=== PATIENT | male | born 1965 | race Caucasian/White ===

== ENCOUNTER 2020-09-14 06:49 | Emergency (ER) | payer OTHER ==
--- OUTSIDE RECORDS SUMMARY | 2020-09-14 06:51 | XMS REPORT | Continuity of Care Document ---
:1965 Author Organization [facility] t Address [address] [place] [address] Care Team Providers Name Role Phone Radiology Attending Clinician Unavailable Keenan CONTRERAS Attending Clinician Fausto CONTRERAS Attending Clinician Emmy CONTRERAS Attending Clinician Doctor Unassigned, Name Attending Clinician Unavailable Only, Test Attending Clinician Unavailable Laya ACNP, E Attending Clinician Emmy CONTRERAS Admitting Clinician Problems This patient has no known problems. Allergies, Adverse Reactions, Alerts This patient has no known allergies or adverse reactions. Medications This patient has no known medications. Procedures This patient has no known procedures. Encounters Start End Encounter Admission Attending Care Care Encounter Source Date/Time Date/Time Type Type Clinicians Facility Department ID 2020-05-24 2020-05-24 [facility] Radiology [facility] [id number] 08:27:28 23:59:00 Encounter Cameron [id number] [place] [id number] [place] [id number] 2020-05-24 2020-05-24 [facility] Radiology [facility] [id number] 08:25:18 08:26:00 Encounter Cameron [id number] [place] [id number] [place] [id number] 2020-03-16 2020-03-16 Telephone DALIA Hussein [id number] 00:00:00 00:00:00 Adonis [facility] [id number] [facility] [id number] 2020-02-05 2020-02-05 Telephone Joanarozina [facility] [id number] 00:00:00 00:00:00 Alea [facility] [id number] CLINICS [id number] 2020-01-28 2020-01-28 Hospital [facility] [id number] 08:39:00 11:30:00 Encounter Mahamed NATALYA [id number] [facility] 4.2.7.2.686 [facility] [id number] 2020-01-28 2020-01-28 Orders Doctor WANG [id number] 00:00:00 00:00:00 Only Unassigned, JAH 350.1.13.10 [facility] 4.2.7.2.686 [id number] 2020-01-26 2020-01-26 Laboratory Only, [facility] 1.2.840.114 [id number] 08:52:14 09:07:14 Only Test Cameron [id number] [place] 4.2.7.2.686 [place] [id number] 2020-01-26 2020-01-26 [facility] 1.2.840.114 [id number] 00:00:00 00:00:00 Shantelle E [facility] [id number] CLINICS [id number] [id number] 2020-01-09 2020-01-[address] [facility] [id number] 13:37:21 14:48:30 Visit Shantelle E Y [facility] [id number] CLINICS [id number] [id number] Results This patient has no known results.
--- NOTE | 2020-09-14 07:34 | RAD REPORT ---
EXAM DESCRIPTION: CT - Head Brain Wo Cont - 09/14/2020 7:13 am CLINICAL HISTORY: syncope, head injury left alevism COMPARISON: No comparisons TECHNIQUE: Axial 5 mm thick images of the head were obtained without IV contrast. All CT scans are performed using dose optimization technique as appropriate and may include automated exposure control or mA/KV adjustment according to patient size. FINDINGS: No intracranial hemorrhage, mass, edema or shift of mid-line structures. No acute infarcti on changes seen. No abnormal extra-axial fluid collections. Ventricles are normal. Mastoid air cells and visualized portions of the paranasal sinuses are clear. No acute bony findings. IMPRESSION: Negative non-contrast CT head examination.
[2020-09-14] MEDS ORDERED: NA CHLORIDE 0.9% 1,000 ML ONE (07:52)
[2020-09-14] MEDS ORDERED: ONDANSETRON 4 MG/2 ML VIAL ONE (07:52)
[2020-09-14 08:22] LABS: Protime INR 1.26
[2020-09-14 08:27] LABS: Absolute Lymphocytes (CBC) 0.9 K/uL (0.7-4.9); Basophils % 0.1 % (0-1.3); Hematocrit 41.1 % (39.6-49.0); Lymphocytes % 13.3 % (15.3-44.8); MPV 7.7 fL (7.6-11.3); RBC Red Blood Cell Count 4.62 M/uL (4.33-5.43)
--- NOTE | 2020-09-14 08:27 | RAD REPORT ---
EXAM DESCRIPTION: RAD - Chest Single View - 09/14/2020 8:16 am CLINICAL HISTORY: COVID +, cough COMPARISON: February 2016 TECHNIQUE: AP portable chest image was obtained 09/14/2020 8:16 am . FINDINGS: Low lung volume exam shows no substantial amount of interstitial or alveolar opacification . No failure or volume overload. Heart and vasculature are normal. No measurable pleural effusion and no pneumothorax. No acute bony abnormality seen. No acute aortic findings suspected. IMPRESSION: No significant lung parenchymal disease at this time.
[2020-09-14] MEDS ORDERED: NA CHLORIDE 0.9% 500 ML ONE (09:15)
--- NOTE | 2020-09-14 17:56 | ER ---
Nurse's Notes [facility] Name: Wes Dove Age: 55 yrs Sex: Male : 1965 Arrival Date: 09/14/2020 Time: 06:51 Bed 4 Private MD: Noble Amaya Diagnosis: SARS-associated coronavirus as the cause of diseases classified elsewhere;Dehydration;Syncope;Unspecified injury of head, initial encounter Presentation: 09/14 06:59 Chief complaint: Patient states: tested positive for covid last Sunday, has been em feeling weak and sweating a lot, also had a syncopal episode and hit left side of head, denies taking blood thinners. Coronavirus screen: fatigue, nausea, vomiting. Client presents with at least one sign or symptom that may indicate coronavirus-19. Standard/surgical mask placed on the client. Provider contacted for isolation considerations. Client reports previous positive COVID test result. Ebola Screen: Patient negative for fever greater than or equal to 101.5 degrees Fahrenheit, and additional compatible Ebola Virus Disease symptoms Patient denies exposure to infectious person. Patient denies travel to an Ebola-affected area in the 21 days before illness onset. No symptoms or risks identified at this time. Initial Sepsis Screen: Does the patient meet any 2 criteria? No. Patient's initial sepsis screen is negative. Does the patient have a suspected source of infection? Yes: Productive cough/pneumonia. Risk Assessment: Do you want to hurt yourself or someone else? Patient reports no desire to harm self or others. Onset of symptoms was September 14, 2020. 06:59 Method Of Arrival: Wheelchair em 06:59 Acuity: CARMEN 3 em Triage Assessment: 08:11 Respiratory: the patient has mild shortness of breath. ph Historical: - Allergies: 07:01 Erythromycin; em - PMHx: 07:01 None; em - PSHx: 07:01 None; em - Immunization history:: Adult Immunizations up to date. - Social history:: Smoking status: Patient denies any tobacco usage or history of. - Family history:: not pertinent. - Hospitalizations: : No recent hospitalization is reported. Screenin:09 Abuse screen: Denies threats or abuse. Denies injuries from another. Nutritional ph screening: No deficits noted. Tuberculosis screening: No symptoms or risk factors identified. Fall Risk None identified. Assessment: 08:09 General: Appears in no apparent distress. comfortable, Behavior is calm, cooperative, ph appropriate for age. Pain: Complains of pain in left bahai. Neuro: Level of Consciousness is awake, alert, obeys commands, Oriented to person, place, time, situation, Reports dizziness, a syncopal episode weakness. Cardiovascular: Capillary refill < 3 seconds in bilateral fingers Patient's skin is warm and dry. Respiratory: Reports shortness of breath on exertion cough that is non-productive, Airway is patent Respiratory effort is even, unlabored, Respiratory pattern is regular, symmetrical. GI: Reports diarrhea, nausea. Derm: Skin is pink, warm \T\ dry. Derm: Skin. Musculoskeletal: Circulation, motion, and sensation intact. Range of motion: intact in all extremities. 08:57 Reassessment: Patient appears in no apparent distress at this time. Patient and/or ph family updated on plan of care and expected duration. Pain level reassessed. Patient is alert, oriented x 3, equal unlabored respirations, skin warm/dry/pink. D/C pending completion of IV fluids. Vital Signs: 06:59 BP 121 / 71; Pulse 81; Resp 20; Temp 98.2; Pulse Ox 96% on R/A; Weight 88.9 kg; Height em 5 ft. 7 in. (170.18 cm); Pain 0/10; 08:11 BP 118 / 75; Pulse 78; Resp 20; Pulse Ox 95% on R/A; ph 06:59 Body Mass Index 30.70 (88.90 kg, 170.18 cm) em ED Course: 06:51 Patient arrived in ED. es 06:51 Noble Amaya MD is Private Physician. es 06:57 Zak Delgadillo MD is Attending Physician. rn 07:01 Triage completed. em 07:01 Arm band placed on. em 07:09 Heather Saravia, RN is Primary Nurse. ph 07:13 CT Head Brain wo Cont In Process Unspecified. EDMS 07:35 Missed attempt(s): 20 gauge in right antecubital area. Bleeding controlled, band aid ph applied, catheter tip intact. 07:56 Inserted saline lock: 20 gauge in left antecubital area, using aseptic technique. ss 08:09 Patient has correct armband on for positive identification. Placed in gown. Bed in low ph position. Call light in reach. Side rails up X 1. Pulse ox on. NIBP on. Door closed. Noise minimized. Warm blanket given. 08:15 XRAY Chest (1 view) In Process Unspecified. EDMS 08:42 Noble Amaya MD is Referral Physician. rn 10:01 No provider procedures requiring assistance completed. IV discontinued, intact, ph bleeding controlled, No redness/swelling at site. Pressure dressing applied. Administered Medications: 08:04 Drug: NS 0.9% 1000 ml Route: IV; Rate: 1000 ml; Site: left antecubital; ph 08:57 Follow up: Response: No adverse reaction; IV Status: Completed infusion; IV Intake: ph 1000ml 08:04 Drug: Zofran (Ondansetron) 4 mg Route: IVP; Site: left antecubital; ph 08:57 Follow up: Response: No adverse reaction ph 08:57 Drug: NS 0.9% 500 ml Route: IV; Rate: bolus; Site: left antecubital; ph 10:01 Follow up: Response: No adverse reaction; IV Status: Completed infusion; IV Intake: ph 500ml Intake: 08:57 IV: 1000ml; Total: 1000ml. ph 10:01 IV: 500ml; Total: 1500ml. ph Outcome: 08:43 Discharge ordered by . rn 10:01 Discharged to home via wheelchair. ph 10:01 Condition: good 10:01 Discharge instructions given to patient, Instructed on discharge instructions, follow up and referral plans. Demonstrated understanding of instructions, follow-up care. 10:01 Patient left the ED. ph Signatures: Dispatcher [employer] Loretta Hawkins Edgar, RN RN em Zak Delgadillo MD MD rn Smirch, Shelby, RN RN ss Hall, Patricia, RN RN ph
--- NOTE | 2020-09-14 17:57 | EDPHYS ---
Physician Documentation [facility] Name: Wes Dove Age: 55 yrs Sex: Male : 1965 Arrival Date: 09/14/2020 Time: 06:51 Bed 4 Private MD: Noble Amaya ED Physician Zak Delgadillo HPI: 09/14 07:13 This 55 yrs old Male presents to ER via Wheelchair with complaints of rn syncope, + COVID-19. 07:13 The patient has experienced syncope. Onset: The symptoms/episode began/occurred just rn prior to arrival. Duration: This was a single episode. Associated injury: Head/face: left spiritism, contusion, swelling. Associated signs and symptoms: Pertinent positives: weakness, Pertinent negatives: abdominal pain, chest pain, confusion. Current symptoms: headache. The patient has not experienced similar symptoms in the past. The patient has not recently seen a physician. Patient reports Covid positive, has been sick for about a week, today was taking a shower felt lightheaded and passed out, striking left head on bathroom floor. Denies shortness of breath, positive for cough/fatigue/generalized weakness. No chest pain currently or preceding syncopal episode.. Historical: - Allergies: 07:01 Erythromycin; em - PMHx: 07:01 None; em - PSHx: 07:01 None; em - Immunization history:: Adult Immunizations up to date. - Social history:: Smoking status: Patient denies any tobacco usage or history of. - Family history:: not pertinent. - Hospitalizations: : No recent hospitalization is reported. ROS: 07:13 Constitutional: Negative for fever, chills Eyes: Negative for injury, pain, redness, rn and discharge, ENT: Negative for injury, pain, and discharge, Neck: Negative for injury, pain, and swelling, Cardiovascular: Negative for chest pain, palpitations, and edema, Respiratory: Negative for shortness of breath, wheezing, and pleuritic chest pain, Abdomen/GI: Negative for abdominal pain, vomiting and constipation, Back: Negative for injury and pain, : Negative for injury, bleeding, discharge, and swelling, MS/Extremity: Negative for injury and deformity, Skin: Negative for injury, rash, and discoloration, Neuro: Negative for numbness, tingling, and seizure. Exam: 07:13 Constitutional: This is a well developed, well nourished patient who is awake, alert, rn and in no acute distress. Head/Face: Normocephalic, positive contusion and swelling left spiritism with subcentimeter wound that does not gape open, no active bleeding Eyes: Pupils equal round and reactive to light, extra-ocular motions intact. Lids and lashes normal. Conjunctiva and sclera are non-icteric and not injected. Cornea within normal limits. ENT: Dry mucous membranes, no stridor Neck: No midline cervical tenderness Cardiovascular: Regular rate and rhythm. No pulse deficits. Respiratory: Mild tachypnea, no retractions Abdomen/GI: Soft, non-tender Skin: Warm, dry MS/ Extremity: Pulses equal, no cyanosis. Neurovascular intact. Full, normal range of motion. Equal circumference. Neuro: Awake and alert, GCS 15, oriented to person, place, time, and situation. Cranial nerves II-XII grossly intact. Motor strength 4/5 in all extremities. Sensory grossly intact. Cerebellar exam normal. Vital Signs: 06:59 BP 121 / 71; Pulse 81; Resp 20; Temp 98.2; Pulse Ox 96% on R/A; Weight 88.9 kg; Height em 5 ft. 7 in. (170.18 cm); Pain 0/10; 08:11 BP 118 / 75; Pulse 78; Resp 20; Pulse Ox 95% on R/A; ph 06:59 Body Mass Index 30.70 (88.90 kg, 170.18 cm) em MDM: 06:57 Patient medically screened. rn 07:42 Data interpreted: Pulse oximetry: on room air is 96 %. Interpretation: acceptable. rn 08:41 Differential Diagnosis: idiopathic syncope, vasovagal episode, dehydration. Data rn reviewed: vital signs, nurses notes, lab test result(s), EKG, radiologic studies, CT scan, plain films, and as a result, I will discharge patient. Counseling: I had a detailed discussion with the patient and/or guardian regarding: the historical points, exam findings, and any diagnostic results supporting the discharge/admit diagnosis, lab results, radiology results, the need for outpatient follow up, to return to the emergency department if symptoms worsen or persist or if there are any questions or concerns that arise at home. Response to treatment: the patient's symptoms have markedly improved after treatment, and as a result, I will discharge patient. Special discussion: I discussed with the patient/guardian in detail that at this point there is no indication for admission to the hospital. It is understood, however, that if the symptoms persist or worsen the patient needs to return immediately for re-evaluation. ED course: Patient feels much better after fluids, CT head negative for acute traumatic findings, chest x-ray grossly clear without oxygen requirement. Will DC home after further IV hydration, with return precautions.. 09/14 07:02 Order name: CBC with Diff rn 09/14 07:02 Order name: Basic Metabolic Panel; Complete Time: 08:34 rn 09/14 07:02 Order name: CT Head Brain wo Cont; Complete Time: 08:15 rn 09/14 07:02 Order name: Protime (+inr); Complete Time: 08:34 rn 09/14 07:02 Order name: Ptt, Activated; Complete Time: 08:34 rn 09/14 07:03 Order name: CBC with Automated Diff; Complete Time: 08:34 EDMS 09/14 07:02 Order name: IV Start; Complete Time: 08:04 rn 09/14 07:02 Order name: XRAY Chest (1 view); Complete Time: 08:34 rn 09/14 07:02 Order name: EKG; Complete Time: 07:03 rn 09/14 07:02 Order name: EKG - Nurse/Tech; Complete Time: 07:36 rn 09/14 07:56 Order name: Labs - recollect needed: recollect all labs; Complete Time: 08:08 bd Administered Medications: 08:04 Drug: NS 0.9% 1000 ml Route: IV; Rate: 1000 ml; Site: left antecubital; ph 08:57 Follow up: Response: No adverse reaction; IV Status: Completed infusion; IV Intake: ph 1000ml 08:04 Drug: Zofran (Ondansetron) 4 mg Route: IVP; Site: left antecubital; ph 08:57 Follow up: Response: No adverse reaction ph 08:57 Drug: NS 0.9% 500 ml Route: IV; Rate: bolus; Site: left antecubital; ph 10:01 Follow up: Response: No adverse reaction; IV Status: Completed infusion; IV Intake: ph 500ml Disposition Summary: 09/14/20 08:43 Discharge Ordered Location: Home rn Problem: new rn Symptoms: have improved rn Condition: Stable rn Diagnosis - SARS-associated coronavirus as the cause of diseases classified elsewhere rn - Dehydration rn - Syncope rn - Unspecified injury of head, initial encounter rn Followup: rn - With: Noble Amaya MD - When: 2 - 3 days - Reason: Recheck today's complaints, Re-evaluation by your physician Discharge Instructions: - Discharge Summary Sheet rn - Dehydration, Adult rn - Syncope rn - COVID-19 rn Forms: - Medication Reconciliation Form rn - Thank You Letter rn - Antibiotic rnp - Prescription Opioid Use rn Signatures: Dispatcher [employer] EDMaylin Brooks Edgar, RN RN Zak Saravia MD MD rn Hall, Patricia, RN RN ph
[2020-09-15 20:25] VITALS: TEMP 98.2
[2020-09-15 20:27] VITALS: BP 118/75; O2SAT 95
--- NOTE | 2020-09-16 07:36 | EKG ---
Test Date: 2020-09-14 Test Time: 07:33:04 Risk Prevention Engineer: SHIVANI MEASUREMENT RESULTS: Intervals: Rate: 79 SD: 138 QRSD: 104 QT: 378 QTc: 433 [place]: P: 50 SD: 138 QRS: 32 T: 64 INTERPRETIVE STATEMENTS: Normal sinus rhythm Incomplete right bundle branch block Borderline ECG Compared to ECG 03/15/2016 13:44:44 No significant changes Electronically Signed On 09-16-20 07:29:14 CDT by To Paez
== END 2020-09-14 10:01 | disposition home or self-care (01) ==
LOC: ER 06:49
DX: R55 Syncope and collapse (principal); U07.1 COVID-19; E86.0 Dehydration; S09.90XA Unspecified injury of head, initial encounter; W18.2XXA Fall in (into) shower or empty bathtub, initial encounter; Y93.E1 Activity, personal bathing and showering; Y92.002 Bathroom of unspecified non-institutional (private) residence as the place of occurrence of the external cause
CPT/HCPCS: 93005; 85025; 80048; 36415; 85610; 85730; 70450; 71045; J7040; J7030; J2405